=== PATIENT | male | born 1965 | race Caucasian/White ===

== ENCOUNTER 2021-04-21 08:23 | Inpatient (IN) | payer BC ==
[2021-04-20 10:18] VITALS: BMI 29.0
[2021-04-21] MEDS ORDERED: Tranexamic Acid 1,000 MG/10 ML VIAL ONE (08:51)
[2021-04-21] MEDS ORDERED: Sodium Chloride 0.9% 100 ML ONE (08:51)
[2021-04-21] MEDS ORDERED: Vancomycin 1.5 GRAM/300 ML BAG 1.5 GM in Premix Bag 1 BAG IVPB SCH (09:00)
[2021-04-21] MEDS ORDERED: Fentanyl 100 MCG/2 ML VIAL ONE ×3 (10:13→14:42)
[2021-04-21] MEDS ORDERED: Midazolam HCl 2 mg/2 ml Vial ONE (10:13)
[2021-04-21] MEDS ORDERED: Acetaminophen 325 MG TAB PO PRN ×2 (11:06→12:21)
[2021-04-21] MEDS ORDERED: Promethazine HCl 25 MG/ML VIAL IM PRN ×2 (11:15→12:21)
[2021-04-21] MEDS ORDERED: diphenhydrAMINE 50 MG/ML VIAL IVP PRN (11:15)
[2021-04-21] MEDS ORDERED: Hydrocerin (Eucerin) Cream 120 gm Jar TOP PRN (11:15)
[2021-04-21] MEDS ORDERED: Promethazine HCl 25 MG SUPP PR PRN (11:15)
[2021-04-21] MEDS ORDERED: Naloxone HCl 0.4 mg/ml Vial IVP PRN (11:15)
[2021-04-21] MEDS ORDERED: traMADol HCl 50 MG TAB PO PRN ×2 (11:15)
[2021-04-21] MEDS ORDERED: Zolpidem Tartrate 5 MG TAB PO PRN ×2 (11:15→12:21)
[2021-04-21] MEDS ORDERED: diphenhydrAMINE 50 MG/ML VIAL IM PRN (11:15)
[2021-04-21] MEDS ORDERED: HYDROcodone/Acetaminophen 5/325 mg Tablet PO PRN ×2 (11:15)
[2021-04-21] MEDS ORDERED: Ondansetron PF 4 MG/2 ML Vial IVP PRN ×2 (11:15→12:21)
[2021-04-21] MEDS ORDERED: diphenhydrAMINE 25 MG CAP PO PRN ×2 (11:15→12:21)
[2021-04-21] MEDS ORDERED: Bupivacaine 0.25% 10 ML VIAL EPIDURAL PRN (11:15)
[2021-04-21] MEDS ORDERED: Naloxone HCl 0.4 mg/ml Vial IV PRN (11:15)
[2021-04-21] MEDS ORDERED: Lidocaine 2% Jelly 5 ML TUBE ONE (12:09)
[2021-04-21] MEDS ORDERED: Phenylephrine 10 MG/ML VIAL ONE ×2 (12:09→13:50)
[2021-04-21] MEDS ORDERED: Ropivacaine 0.2% HCl/PF 20 ML ONE (12:09)
[2021-04-21] MEDS ORDERED: HYDROcodone/Acetaminophen 10/325 mg Tablet PO PRN ×2 (12:21)
[2021-04-21] MEDS ORDERED: Rocuronium Bromide 10 MG/ML (10ML VIAL) ONE (12:34)
[2021-04-21] MEDS ORDERED: Lidocaine 1.5% w/Epi 1:200K 30 ML VIAL (Epid Use) ONE (12:34)
[2021-04-21] MEDS ORDERED: Labetalol HCl 100 MG/20 ML VIAL ONE (12:34)
[2021-04-21] MEDS ORDERED: Ondansetron PF 4 MG/2 ML Vial ONE (12:34)
[2021-04-21] MEDS ORDERED: Dexamethasone 20 MG/5 ML VIAL ONE (12:34)
[2021-04-21] MEDS ORDERED: PROPOFOL 200 MG/20 ML VIAL ONE (12:34)
[2021-04-21] MEDS ORDERED: Glycopyrrolate 0.2 MG/ML 5 ML SYRINGE ONE (12:34)
[2021-04-21] MEDS ORDERED: Ketorolac Tromethamine 30 MG/ML VIAL ONE (16:01)
[2021-04-21] MEDS ORDERED: CEFAZOLIN 2 GM in Premix Bag 1 BAG IVPB SCH (17:00)
[2021-04-21] MEDS: Ketorolac Tromethamine 30 MG/ML VIAL IVP SCH ×2 (17:12→17:51)
[2021-04-21] MEDS: Sodium Chloride 0.9% 1,000 ML IV SCH ×2 (17:12→22:47)
[2021-04-21] MEDS: Aspirin 81 mg Enteric Coated Tablet PO SCH (20:39)
[2021-04-21] MEDS: levETIRAcetam 500 MG TAB PO SCH (20:39)
[2021-04-21] MEDS: CEFAZOLIN 2 GM in Premix Bag 1 BAG IVPB SCH (20:40)
[2021-04-22] MEDS ORDERED: Mag-Al 1200 mg/1200 mg/30 ML UDCUP PO PRN (00:37)
[2021-04-22] MEDS: Calcium Carbonate 500 MG ChewTAB PO PRN ×2 (00:42→05:58)
[2021-04-22] MEDS: Ketorolac Tromethamine 30 MG/ML VIAL IVP SCH ×5 (00:42→22:58)
[2021-04-22] MEDS: CEFAZOLIN 2 GM in Premix Bag 1 BAG IVPB SCH (05:55)
[2021-04-22 06:40] LABS: Hemoglobin 11.6 g/dL (14.0-18.0); Mean Corpuscular HGB CONC 35.4 g/dL (32.0-36.0); Mean Corpuscular Hemoglobin 36.6 pg (27.0-31.0); Platelet Count 119 thou/uL (130-400); RBC Distribution Width 11.4 % (11.5-14.5); Red Blood Cell (RBC) Count 3.17 mill/uL (4.70-6.10); White Blood Cell (WBC) Count 8.7 thou/uL (4.8-10.8)
[2021-04-22] MEDS: Fentanyl 5 mcg/Bup 0.075% Cadd 100 ML EPIDURAL SCH ×2 (06:44→22:53)
[2021-04-22] MEDS ORDERED: Multivitamin W/ Minerals 1 TAB PO SCH (09:00)
[2021-04-22] MEDS ORDERED: Potassium Chloride 10 MEQ TAB PO SCH (09:00)
[2021-04-22] MEDS: Aspirin 81 mg Enteric Coated Tablet PO SCH ×3 (09:35→20:31)
[2021-04-22] MEDS: Senokot S 8.6-50 MG TAB PO SCH ×2 (09:36→20:31)
[2021-04-22] MEDS: Sodium Chloride 0.9% 1,000 ML IV SCH ×2 (09:37→19:23)
[2021-04-22] MEDS: Ferrous Gluconate 324 MG TAB PO SCH ×2 (09:37→20:31)
[2021-04-22] MEDS: levETIRAcetam 500 MG TAB PO SCH ×3 (09:38→20:31)
[2021-04-22] MEDS: Loratadine 10 MG TAB PO SCH ×2 (09:38→09:43)
[2021-04-22 23:21] VITALS: TEMP 98.2
[2021-04-23] MEDS: Sodium Chloride 0.9% 1,000 ML IV SCH (05:20)
[2021-04-23] MEDS: Ketorolac Tromethamine 30 MG/ML VIAL IVP SCH (05:20)
[2021-04-23 08:06] VITALS: BP 136/89
== END 2021-04-23 12:01 | disposition home or self-care (01) | DRG 470 ==
LOC: SDC 08:23 → SURG A 12:21
PROVIDERS: ADMIT Orthopaedic Surgery; ATTEND Orthopaedic Surgery
PROC: 0SRB0JA Replacement of Left Hip Joint with Synthetic Substitute, Uncemented, Open Approach (ICD-10-PCS; principal; 2021-04-21)
DX: M16.12 Unilateral primary osteoarthritis, left hip (principal); Z20.822 Contact with and (suspected) exposure to COVID-19; G43.909 Migraine, unspecified, not intractable, without status migrainosus; J30.2 Other seasonal allergic rhinitis; Q65.89 Other specified congenital deformities of hip; Z79.899 Other long term (current) drug therapy
CPT/HCPCS: 36415; 85027; 93005; 93010; C1713; C1776; J0690; J1100; J1885; J2001; J2250; J2370; J2405; J2704; J2795; J3010; J3370; J3490

== ENCOUNTER 2023-11-29 06:28 | Inpatient (IN) | payer BC ==
[2023-11-28 08:47] VITALS: BMI 30.2
[2023-11-29] MEDS ORDERED: Promethazine HCl 25 MG/ML VIAL IM PRN (07:02)
[2023-11-29] MEDS ORDERED: diphenhydrAMINE 25 MG CAP PO PRN (07:02)
[2023-11-29] MEDS ORDERED: fentaNYL 50 mcg/mL 1 mL Vial SLOW IVP PRN (07:02)
[2023-11-29] MEDS ORDERED: Bupivacaine PF 0.5% 30 ML VIAL ONE ×2 (07:16→08:06)
[2023-11-29] MEDS ORDERED: Midazolam HCl 2 mg/2 ml Vial ONE (07:16)
[2023-11-29] MEDS ORDERED: fentaNYL 50 mcg/mL 1 mL Vial ONE ×2 (07:16→08:09)
[2023-11-29] MEDS ORDERED: Sodium Chloride 0.9% 100 ML ONE ×2 (07:24→08:39)
[2023-11-29] MEDS ORDERED: Tranexamic Acid 1,000 MG/10 ML VIAL ONE (07:24)
[2023-11-29] MEDS ORDERED: Vancomycin (BATCH) 1.5 GM/300 ML BAG ONE (07:24)
[2023-11-29] MEDS ORDERED: Bupivacaine HCl 0.5%/Epinephrine 1:200,000/PF 30 ml Vial ONE (07:55)
[2023-11-29] MEDS ORDERED: Propofol 1,000 MG/100 ML VIAL IV ONE ×2 (08:12→09:15)
[2023-11-29] MEDS ORDERED: Lidocaine 2% 6 ML (Jelly) SYR ONE (08:19)
[2023-11-29] MEDS ORDERED: CEFAZOLIN 2 GM VIAL ONE (08:39)
[2023-11-29] MEDS ORDERED: Non-Formulary Item 1 EACH (Multivitamin [Multivitamin] 1 EACH Tablet) PO SCH (09:00)
[2023-11-29] MEDS ORDERED: PHENYLEPHRINE-NS 100 MCG/ML 10 ML SYRINGE ONE (09:25)
[2023-11-29] MEDS: levETIRAcetam 500 MG TAB PO SCH (13:09)
[2023-11-29] MEDS: Aspirin 81 mg Enteric Coated Tablet PO SCH (13:09)
[2023-11-29] MEDS: CEFAZOLIN 2 GM in Sodium Chloride 0.9% 100 ML IVPB SCH (13:15)
[2023-11-29] MEDS: Acetaminophen 325 MG TAB PO PRN (13:15)
[2023-11-29] MEDS: HYDROcodone/Acetaminophen 10/325 mg Tablet PO PRN (14:56)
[2023-11-29] MEDS: Ondansetron PF 4 MG/2 ML Vial IVP PRN (17:00)
[2023-11-29] MEDS: fentaNYL 50 mcg/mL 1 mL Vial SLOW IVP PRN (17:00)
[2023-11-29] MEDS: Cyclobenzaprine 10 MG TAB PO PRN (18:56)
[2023-11-29] MEDS: Acetaminophen 500 MG TAB PO SCH (21:17)
[2023-11-29] MEDS: Ibuprofen 800 MG TAB PO SCH (21:18)
[2023-11-29] MEDS: Zolpidem Tartrate 5 MG TAB PO PRN (21:27)
[2023-11-30 04:01] LABS: Hematocrit 34.6 % (42.0-52.0); Hemoglobin 12.1 g/dL (14.0-18.0); Mean Corpuscular Hemoglobin 35.7 pg (27.0-31.0); Mean Corpuscular Volume 102.1 fL (78.0-98.0); Mean Platelet Volume 10.2 fL (7.4-10.4); Platelet Count 144 10x3/uL (130-400); RBC Distribution Width 12.7 % (11.5-14.5); Red Blood Cell (RBC) Count 3.39 mill/uL (4.70-6.10)
[2023-11-30] MEDS: Senokot S 8.6-50 MG TAB PO SCH (08:42)
[2023-11-30] MEDS: Ferrous Gluconate 324 MG TAB PO SCH (08:42)
[2023-11-30] MEDS ORDERED: Multivitamin W/ Minerals 1 TAB PO SCH (09:00)
[2023-11-30] MEDS: traMADol HCl 50 MG TAB PO PRN (09:37)
[2023-11-30] MEDS: levETIRAcetam 500 MG TAB PO SCH (09:38)
[2023-11-30] MEDS: Multivit, Therapeutic 1 TAB PO SCH (09:38)
[2023-11-30] MEDS: Acetaminophen 500 MG TAB PO SCH (12:53)
[2023-11-30] MEDS: HYDROcodone/Acetaminophen 10/325 mg Tablet PO PRN (15:05)
[2023-12-01 04:07] LABS: Hematocrit 28.8 % (42.0-52.0); Mean Corpuscular Hemoglobin 36.5 pg (27.0-31.0); Mean Corpuscular Volume 104.4 fL (78.0-98.0); Mean Platelet Volume 10.3 fL (7.4-10.4); Platelet Count 118 10x3/uL (130-400); RBC Distribution Width 12.5 % (11.5-14.5); Red Blood Cell (RBC) Count 2.74 mill/uL (4.70-6.10)
[2023-12-01 05:34] VITALS: TEMP 98.1
[2023-12-01 08:33] VITALS: BP 139/84
== END 2023-12-01 09:45 | disposition home or self-care (01) | DRG 470 ==
LOC: SDC 06:28 → SURG A 07:02 → SDC 12:41 → OBSVTOIN 11-30 08:14
PROVIDERS: ADMIT Orthopaedic Surgery; ATTEND Orthopaedic Surgery
PROC: 0SR9039 Replacement of Right Hip Joint with Ceramic Synthetic Substitute, Cemented, Open Approach (ICD-10-PCS; principal; 2023-11-29)
DX: M16.11 Unilateral primary osteoarthritis, right hip (principal); M25.751 Osteophyte, right hip; Z96.642 Presence of left artificial hip joint; Z90.89 Acquired absence of other organs; Z98.890 Other specified postprocedural states
CPT/HCPCS: 36415; 85027; C1776; J0665; J2250; J2405; J2704; J3010; J3370; J3490

== ENCOUNTER 2024-01-02 15:14 | Inpatient (IN) | payer BC ==
[2024-01-02] MEDS ORDERED: HYDROcodone/Acetaminophen 10/325 mg Tablet PO PRN (17:08)
[2024-01-02] MEDS ORDERED: Sodium Chloride 0.9% 1,000 ML IV SCH (17:15)
[2024-01-02 17:28] VITALS: BMI 29.4
[2024-01-02 17:33] LABS: #Basophils 0.05 10x3/uL (0.0-0.2); %Eosinophils 0.6 % (0.0-10.0); %Lymphocytes 26.4 % (21.0-51.0); %Monocytes 12.5 % (0.0-10.0); %Neutrophils 59.3 % (42.0-75.0); Hematocrit 35.9 % (42.0-52.0); Hemoglobin 12.3 g/dL (14.0-18.0); Mean Corpuscular HGB CONC 34.3 g/dL (32.0-36.0); Mean Corpuscular Hemoglobin 34.4 pg (27.0-31.0); Mean Corpuscular Volume 100.3 fL (78.0-98.0); Mean Platelet Volume 9.3 fL (7.4-10.4); Platelet Count 164 10x3/uL (130-400); RBC Distribution Width 12.5 % (11.5-14.5); Red Blood Cell (RBC) Count 3.58 mill/uL (4.70-6.10)
[2024-01-02 17:50] LABS: Anion Gap 14 mmol/L (10-20)
[2024-01-02 17:54] LABS: BUN (Urea Nitrogen) 7 mg/dL (8.4-25.7); CRP,High Sensitivity (Inhouse) 5.49 mg/dL (< or = 0.5); Calc. Creatinine Clearance 169 mL/min (70-130); Calcium 9.4 mg/dL (7.8-10.44); Carbon Dioxide 26 mmol/L (22-29); Chloride 100 mmol/L (98-107); Estimated GFR 108; Glucose 150 mg/dL (70-105); Potassium 3.3 mmol/L (3.5-5.1); Sodium 137 mmol/L (136-145)
[2024-01-02] MEDS: HYDROcodone/Acetaminophen 10/325 mg Tablet PO PRN (19:50)
[2024-01-02] MEDS: Morphine 2 MG/ML VIAL SLOW IVP SCH (23:05)
[2024-01-02] MEDS: Melatonin 3 MG TAB PO SCH (23:05)
[2024-01-03] MEDS ORDERED: HYDROcodone/Acetaminophen 10/325 mg Tablet PO PRN (09:19)
[2024-01-03] MEDS ORDERED: fentaNYL PF 100 MCG/2 ML SYRINGE ONE (10:04)
[2024-01-03] MEDS ORDERED: PROPOFOL 20 ML ONE (10:04)
[2024-01-03] MEDS ORDERED: SUGAMMADEX SODIUM 200 MG/2 ML VIAL ONE (10:04)
[2024-01-03] MEDS ORDERED: Rocuronium Bromide 10 MG/ML (10ML VIAL) ONE (10:05)
[2024-01-03] MEDS ORDERED: Dexamethasone 4 mg/ml Vial ONE (10:05)
[2024-01-03] MEDS ORDERED: Ondansetron PF 4 MG/2 ML Vial ONE (10:05)
[2024-01-03] MEDS ORDERED: Phenylephrine 10 MG/ML VIAL ONE (10:07)
[2024-01-03] MEDS ORDERED: Sodium Chloride 0.9% 250 ML 250 ML ONE (10:07)
[2024-01-03] MEDS ORDERED: HYDROmorphone 2 MG/ML VIAL ONE (10:10)
[2024-01-03] MEDS ORDERED: Tranexamic Acid 1,000 MG/10 ML VIAL ONE (10:51)
[2024-01-03] MEDS ORDERED: Sodium Chloride 0.9% 100 ML ONE (10:51)
[2024-01-03] MEDS ORDERED: Tobramycin Sulfate 1.2 GM VIAL ONE (11:11)
[2024-01-03] MEDS ORDERED: Vancomycin 1 GM VIAL ONE (11:11)
[2024-01-03] MEDS ORDERED: Promethazine HCl 25 MG/ML VIAL IM PRN ×3 (11:23→16:52)
[2024-01-03] MEDS ORDERED: fentaNYL 50 mcg/mL 1 mL Vial SLOW IVP PRN (11:23)
[2024-01-03] MEDS ORDERED: diphenhydrAMINE 25 MG CAP PO PRN ×2 (11:23→16:52)
[2024-01-03] MEDS ORDERED: Ondansetron PF 4 MG/2 ML Vial IVP PRN (11:23)
[2024-01-03] MEDS ORDERED: Ondansetron HCl/PF 4 MG/2 ML Vial IVP PRN (12:15)
[2024-01-03] MEDS ORDERED: HYDROmorphone 2 MG/ML VIAL SLOW IVP PRN (12:15)
[2024-01-03] MEDS ORDERED: Ketorolac Tromethamine 30 MG (1 mL) VIAL ONE (13:26)
[2024-01-03] MEDS ORDERED: Esmolol 100 MG/10 ML VIAL ONE (13:26)
[2024-01-03] MEDS ORDERED: fentaNYL 50 mcg/mL 1 mL Vial ONE (14:31)
[2024-01-03] MEDS ORDERED: Metoprolol Tartrate 5 MG (5 mL) VIAL ONE (14:31)
[2024-01-03] MEDS: Vancomycin (BATCH) 2.5 GM in Premix 1 BAG IVPB SCH (14:41)
[2024-01-03] MEDS: Sodium Chloride 0.9% 1,000 ML IV SCH (15:31)
[2024-01-03] MEDS: Ketorolac Tromethamine 30 MG (1 mL) VIAL IVP SCH (15:33)
[2024-01-03] MEDS: Cefepime 2 GM in Sodium Chloride 0.9% 100 ML IVPB SCH (16:18)
[2024-01-03] MEDS: fentaNYL 50 mcg/mL 1 mL Vial SLOW IVP PRN (16:18)
[2024-01-03] MEDS ORDERED: diphenhydrAMINE 50 MG/ML VIAL IM PRN (16:52)
[2024-01-03] MEDS ORDERED: Naloxone HCl 0.4 mg/ml Vial IV PRN (16:52)
[2024-01-03] MEDS ORDERED: diphenhydrAMINE 50 MG/ML VIAL IVP PRN (16:52)
[2024-01-03] MEDS ORDERED: Communication Order-Pharmacy FS SCH (17:00)
[2024-01-03] MEDS: FENTANYL 500 MCG/10 ML VIAL 2,000 MCG in Sodium Chloride 0.9% 60 ML IV PRN (18:00)
[2024-01-03] MEDS: Ondansetron PF 4 MG/2 ML Vial IVP PRN (20:37)
[2024-01-03] MEDS: Aspirin 81 mg Enteric Coated Tablet PO SCH (20:39)
[2024-01-03] MEDS ORDERED: Vancomycin 1.5 GM in Sodium Chloride 0.9% 250 ML 300 ML IVPB SCH (21:00)
[2024-01-04 05:13] LABS: Hematocrit 28.1 % (42.0-52.0); Hemoglobin 9.3 g/dL (14.0-18.0); Mean Corpuscular HGB CONC 33.1 g/dL (32.0-36.0); Mean Corpuscular Hemoglobin 35.5 pg (27.0-31.0); Mean Corpuscular Volume 107.3 fL (78.0-98.0); Mean Platelet Volume 9.9 fL (7.4-10.4); Platelet Count 173 10x3/uL (130-400); RBC Distribution Width 12.7 % (11.5-14.5); Red Blood Cell (RBC) Count 2.62 mill/uL (4.70-6.10)
[2024-01-04 06:08] LABS: Vancomycin, Random 7.4 ug/mL (See Comment)
[2024-01-04] MEDS ORDERED: Lidocaine 1% PF 5 ML VIAL ONE (08:00)
[2024-01-04] MEDS ORDERED: Sodium Bicarbonate 2.5 MEQ/5 ML SDV ONE (08:00)
[2024-01-04] MEDS ORDERED: Multivitamin W/ Minerals 1 TAB PO SCH (09:00)
[2024-01-04] MEDS: Senokot S 8.6-50 MG TAB PO SCH (09:39)
[2024-01-04] MEDS: Hydrochlorothiazide 25 MG TAB PO SCH (09:40)
[2024-01-04] MEDS: levETIRAcetam 500 MG TAB PO SCH (09:40)
[2024-01-04] MEDS: Lisinopril 20 MG TAB PO SCH (09:40)
[2024-01-04] MEDS: Ferrous Gluconate 324 MG TAB PO SCH (09:40)
[2024-01-04] MEDS: Vancomycin (BATCH) 1.5 GM in Premix 1 BAG IVPB SCH (09:41)
[2024-01-04] MEDS: Cyclobenzaprine 10 MG TAB PO PRN (12:34)
[2024-01-04] MEDS: Multivitamin W/ Minerals 1 TAB PO SCH (16:05)
[2024-01-04] MEDS: Vancomycin (BATCH) 1.75 GM in Premix 1 BAG IVPB SCH (20:15)
[2024-01-05 05:04] LABS: Hematocrit 25.4 % (42.0-52.0); Hemoglobin 8.5 g/dL (14.0-18.0); Mean Corpuscular HGB CONC 33.5 g/dL (32.0-36.0); Mean Corpuscular Hemoglobin 35.7 pg (27.0-31.0); Mean Corpuscular Volume 106.7 fL (78.0-98.0); Mean Platelet Volume 9.6 fL (7.4-10.4); Platelet Count 141 10x3/uL (130-400); RBC Distribution Width 12.6 % (11.5-14.5); Red Blood Cell (RBC) Count 2.38 mill/uL (4.70-6.10)
[2024-01-05 05:23] LABS: Vancomycin, Random 13.6 ug/mL (See Comment)
[2024-01-05] MEDS ORDERED: traMADol HCl 50 MG TAB PO PRN (10:39)
[2024-01-05] MEDS: Vancomycin (BATCH) 1.25 GM in Premix 1 BAG IVPB SCH (16:19)
[2024-01-05] MEDS: HYDROcodone/Acetaminophen 10/325 mg Tablet PO PRN (16:19)
[2024-01-05] MEDS: Rifampin 300 MG CAP PO SCH (21:06)
[2024-01-06 00:22] LABS: RBC Count-Automated (BF) Greater than 890000 /cu.mm; WBC/Nucleated-Auto (BF) 8032 /cu.mm
[2024-01-06 00:30] LABS: BF Color Red; Body Fluid Source Synovial Fluid; Clarity Cloudy/Turbid (Clear); Tube # EDTA
[2024-01-06 00:36] LABS: BF Segmented Neutrophils 92 %; Cell Count Non Hematic 5 %; Lymphocytes 3 %
[2024-01-06 06:55] LABS: Hematocrit 25.8 % (42.0-52.0); Hemoglobin 8.6 g/dL (14.0-18.0); Mean Corpuscular HGB CONC 33.3 g/dL (32.0-36.0); Mean Corpuscular Hemoglobin 35.2 pg (27.0-31.0); Mean Corpuscular Volume 105.7 fL (78.0-98.0); Mean Platelet Volume 9.7 fL (7.4-10.4); Platelet Count 169 10x3/uL (130-400); RBC Distribution Width 12.5 % (11.5-14.5); Red Blood Cell (RBC) Count 2.44 mill/uL (4.70-6.10)
[2024-01-06] MEDS: fentaNYL 50 mcg/mL 1 mL Vial SLOW IVP PRN (12:48)
[2024-01-06] MEDS: CEFAZOLIN 2 GM in Sodium Chloride 0.9% 100 ML IVPB SCH (12:50)
[2024-01-06 12:59] VITALS: BMI 29.4
[2024-01-06] MEDS: Zolpidem Tartrate 5 MG TAB PO PRN (21:35)
[2024-01-07 05:22] LABS: Hematocrit 27.1 % (42.0-52.0); Mean Corpuscular HGB CONC 33.2 g/dL (32.0-36.0); Mean Corpuscular Volume 105.4 fL (78.0-98.0); Mean Platelet Volume 9.6 fL (7.4-10.4); Platelet Count 186 10x3/uL (130-400); RBC Distribution Width 12.5 % (11.5-14.5); Red Blood Cell (RBC) Count 2.57 mill/uL (4.70-6.10)
[2024-01-07] MEDS: Multivit, Therapeutic 1 TAB PO SCH (08:47)
[2024-01-07] MEDS: HYDROcodone/Acetaminophen 10/325 mg Tablet PO PRN (21:04)
[2024-01-08 05:29] LABS: Hematocrit 27.2 % (42.0-52.0); Mean Corpuscular HGB CONC 33.1 g/dL (32.0-36.0); Mean Corpuscular Hemoglobin 34.9 pg (27.0-31.0); Mean Corpuscular Volume 105.4 fL (78.0-98.0); Mean Platelet Volume 9.7 fL (7.4-10.4); Platelet Count 211 10x3/uL (130-400); RBC Distribution Width 12.5 % (11.5-14.5); Red Blood Cell (RBC) Count 2.58 mill/uL (4.70-6.10)
[2024-01-08] MEDS: Acetaminophen 325 MG TAB PO PRN (14:29)
[2024-01-09 06:05] LABS: Hematocrit 27.4 % (42.0-52.0); Mean Corpuscular HGB CONC 32.8 g/dL (32.0-36.0); Mean Corpuscular Hemoglobin 34.6 pg (27.0-31.0); Mean Corpuscular Volume 105.4 fL (78.0-98.0); Mean Platelet Volume 9.8 fL (7.4-10.4); Platelet Count 237 10x3/uL (130-400); RBC Distribution Width 12.4 % (11.5-14.5)
[2024-01-10] MEDS: traMADol HCl 50 MG TAB PO PRN (05:58)
[2024-01-10 08:45] LABS: Hematocrit 28.3 % (42.0-52.0); Hemoglobin 9.1 g/dL (14.0-18.0); Mean Corpuscular HGB CONC 32.2 g/dL (32.0-36.0); Mean Corpuscular Hemoglobin 34.3 pg (27.0-31.0); Mean Corpuscular Volume 106.8 fL (78.0-98.0); Mean Platelet Volume 10.1 fL (7.4-10.4); Platelet Count 270 10x3/uL (130-400); RBC Distribution Width 12.6 % (11.5-14.5); Red Blood Cell (RBC) Count 2.65 mill/uL (4.70-6.10)
[2024-01-10] MEDS: Acetaminophen 325 MG TAB PO PRN (21:02)
[2024-01-11 04:50] LABS: Hematocrit 28.8 % (42.0-52.0); Hemoglobin 9.5 g/dL (14.0-18.0); Mean Corpuscular Hemoglobin 34.5 pg (27.0-31.0); Mean Corpuscular Volume 104.7 fL (78.0-98.0); Mean Platelet Volume 9.8 fL (7.4-10.4); Platelet Count 314 10x3/uL (130-400); RBC Distribution Width 12.5 % (11.5-14.5); Red Blood Cell (RBC) Count 2.75 mill/uL (4.70-6.10)
[2024-01-11 07:57] VITALS: TEMP 98.1
[2024-01-11 12:20] VITALS: BP 133/83
[2024-02-03 15:15] LABS: Fungus Culture Final report (.); Fungus Stain Final report (.)
== END 2024-01-11 15:50 | disposition home or self-care (01) | DRG 468 ==
LOC: SURG A 16:36 → UNDOADMIN 16:36 → UNDODISIN 01-11 15:50
PROVIDERS: ADMIT Orthopaedic Surgery; ATTEND Orthopaedic Surgery
PROC: 0SP909Z Removal of Liner from Right Hip Joint, Open Approach (ICD-10-PCS; principal; 2024-01-02)
PROC: 0SUA09Z Supplement Right Hip Joint, Acetabular Surface with Liner, Open Approach (ICD-10-PCS; 2024-01-02)
PROC: 02HV33Z Insertion of Infusion Device into Superior Vena Cava, Percutaneous Approach (ICD-10-PCS; 2024-01-04)
PROC: B5181ZA Fluoroscopy of Superior Vena Cava using Low Osmolar Contrast, Guidance (ICD-10-PCS; 2024-01-04)
DX: T84.51XA Infection and inflammatory reaction due to internal right hip prosthesis, initial encounter (principal); Z90.89 Acquired absence of other organs; Z82.49 Family history of ischemic heart disease and other diseases of the circulatory system; Z87.891 Personal history of nicotine dependence; Z79.899 Other long term (current) drug therapy; Z96.643 Presence of artificial hip joint, bilateral
CPT/HCPCS: 36415; 36569; 76942; 77001; 80048; 80202; 82565; 85025; 85027; 85060; 86141; 87070; 87077; 87102; 87116; 87186; 87205; 87206; 89051; 93005; 93010; 97139; C1751; C1776; J0692; J1100; J1170; J1885; J2272; J2371; J2405; J2704; J3010; J3260; J3370; J3490; J7050